=== PATIENT | female | born 1985 | race Caucasian/White ===

== ENCOUNTER 2017-01-24 13:30 | Outpatient (CLI) | payer BC ==
[~2017-01-24] VITALS: Ht 154.9 cm; Wt 57.0 kg
[2017-01-24 13:45] VITALS: BP 129/67
[2017-01-24] MEDS ORDERED: PRENTAB9 PO (14:01)
--- NOTE | 2017-01-24 20:36 | IPNPDOC ---
Text Note Date of Service The patient was seen on 01/24/17 @ 1430. NOTE SUBJECTIVE: Patient is a 31-year-old female who is a at 20.6 weeks' gestation with an FUAD of 06/07/2017 based off of her LMP and consistent with her first trimester ultrasound. She initiated care in her first trimester at [facility]. Her has been uncomplicated. She presents to labor and delivery with complaints of leaking of fluid that occurred at 10 AM this morning. She reports that the leaking was a gush of fluid that saturated her underwear and leaked onto her pants. She reports the fluid to be thin and clear with some white mucus. She denies intercourse the last 48-72 hours. She denies vaginal irritation or vaginal itching. Reports mild cramping in the suprapubic area and round ligament pain started 2 days ago. Patient's activity has increased over the last few days. She reports doing a lot of outdoor activities during her vacation. Patient states that she does have a malodorous urine and has noted increasing discharge prior to her episode today. She denies dysuria. Reports active movement. Denies contractions, abdominal tightening, and vaginal bleeding. OBJECTIVE: Vital signs: 129/67, 95, 18, 96.9. heart rate by Doppler was in the 130s. Abdomen palpates soft without tenderness. No contractions noted on external monitor. Respiratory rate is regular with no use of accessory muscles. Sterile speculum exam was done. External genitalia: Female genitalia appears normal for age. No discharge noted at the introitus. Vagina: Vaginal vault appears normal. No pooling of fluid noted in the vaginal canal. Cervix: Position midline. Appears closed and thick. Surface appears normal urine normal physiological secretions noted. No leaking of fluid from cervical os with 3 episodes of bearing down. Nitrazine negative. Fern negative. Bedside ultrasound done. Appropriate amount of fluid around fetus was noted with the DVP measuring 5.1 cm. Fetus is very active on the ultrasound. 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 Seals in December 2015, D&E 05/22/2016. Family history: Mother has ITP, grandparents with history of heart disease, stroke, diabetes mellitus2, stomach cancer. Social: Patient is single with father of the baby. She holds her master's degree. 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 She denies smoking. Assessment: IUP at 20.6 weeks' gestation, not ruptured Plan: UA and culture sent to lab. Patient discharged home with significant other. Patient encouraged to return to hospital with any bright red vaginal bleeding or continued leaking of fluid. Patient encouraged to follow up with routine OB appointments. Patient will be notified if urine culture is positive. VS,Fishbone, I+O VS, Fishbone, I+O Vital Signs Date Time Temp Pulse Resp B/P (MAP) Pulse Ox O2 Delivery O2 Flow Rate FiO2 01/24/17 13:45 96.9 95 18 129/67 (87) Room Air DOLORES CASTILLO CNM Jan 24, 2017 20:36
== END 2017-01-24 15:00 | disposition home or self-care (01) ==
LOC: M LDO 13:30
PROVIDERS: ATTEND Advanced Practice Midwife
DX: O26.892 Other specified pregnancy related conditions, second trimester (principal); O98.512 Other viral diseases complicating pregnancy, second trimester; B00.1 Herpesviral vesicular dermatitis; O99.112 Other diseases of the blood and blood-forming organs and certain disorders involving the immune mechanism complicating pregnancy, second trimester; D68.0 Von Willebrand disease; O99.512 Diseases of the respiratory system complicating pregnancy, second trimester; J45.909 Unspecified asthma, uncomplicated; Z3A.20 20 weeks gestation of pregnancy; Z91.040 Latex allergy status; Z14.1 Cystic fibrosis carrier